=== PATIENT | male | born 1960 | race Caucasian/White ===

== ENCOUNTER → 2018-10-06 | Day surgery (SDC) | payer OTHER, MEDICAID ==
[~2018-10-06] MED LIST: ALBU2.5V8 INH; ALPR2TAB5 PO; ASPI325T8 PO; IV RINGERS,LACTATED 1000ML 1,000 ML IV SCH; LIDOCAINE 1% PF 2 ML VIAL. ONE; PROPOFOL 40 ML IV ONE
[2018-10-06 09:29] VITALS: BP 150/90
--- NOTE | 2018-10-08 14:08 | PATHOLOGY ---
[facility] Accession Number: [id number] . 01 Material submitted: . RECTAL POLYP . 01 Clinical history: . Screening . 02 Diagnosis: Colon, rectum, biopsy: - Hyperplastic polyp, multiple fragments. (SKM:[facility] 10/08/2018) QTP/10/08/2018 . 02 Electronically signed: . Chapo Hamilton MD, Pathologist NPI- [id number] . 01 Gross description: . Received in formalin labeled "Juan F, Dina, rectal polyp," are multiple segments of llanos soft tissue measuring 1.4 x 0.9 x 0.2 cm in aggregate dimensions. The specimen is filtered and entirely submitted in cassette A1. (TSD; 10/06/2018) TOB/TOB . 02 Pathologist provided ICD-10: K62.1 . 02 CPT . 778821 Specimen Comment: A courtesy copy of this report has been sent to Specimen Comment: [phone], . Specimen Comment: Report sent to and Performed at: 01 [facility] [address], [place] [id number] MD Kurt Cason MD Phone: [phone] Performed at: 02 [facility] [address] [place], [place] [id number] MD Diony Jeffers MD Phone: [phone]
== END | disposition home or self-care (01) ==
LOC: ENDOS 07:35
PROVIDERS: ATTEND Internal Medicine Gastroenterology
DX: Z12.11 Encounter for screening for malignant neoplasm of colon (principal); K62.1 Rectal polyp; K57.30 Diverticulosis of large intestine without perforation or abscess without bleeding; K64.0 First degree hemorrhoids; I10 Essential (primary) hypertension; F41.9 Anxiety disorder, unspecified; E78.00 Pure hypercholesterolemia, unspecified; I25.2 Old myocardial infarction; Z83.71 Family history of colonic polyps; Z86.010 Personal history of colon polyps; Z82.49 Family history of ischemic heart disease and other diseases of the circulatory system; Z79.82 Long term (current) use of aspirin; Z79.899 Other long term (current) drug therapy
CPT/HCPCS: 45385; 88305; J2704; 45380

== ENCOUNTER 2021-02-16 09:55 | Emergency (ER) | payer MEDICARE, MEDICAID ==
[~2021-02-16] VITALS: Ht 172.7 cm; Wt 69.7 kg
[~2021-02-16 09:55] MED LIST changes: -IV RINGERS,LACTATED 1000ML 1,000 ML IV SCH; -LIDOCAINE 1% PF 2 ML VIAL. ONE; -PROPOFOL 40 ML IV ONE
--- NOTE | 2021-02-16 11:10 | RAD ---
XR CHEST 1V History: Reason: blurry vision / Spl. Instructions: / History: Comparison: None. Findings: No consolidation or pleural effusion. Normal heart size. No pneumothorax. Impression: 1. No acute cardiopulmonary process. Electronically signed by: Art Cardoso DO (02/16/2021 11:08 AM) [id number]
--- NOTE | 2021-02-16 11:14 | PHYS DOC ---
Past Medical History Past Medical History: High Cholesterol, Hypertension, [place] Past Surgical History: Angioplasty Smoking Status: Current Every Day Smoker General Adult EDM: Chief Complaint: NEURO SYMPTOMS/DEFICITS HPI: HPI: Patient is a 60 year old male with history of ME with 3 stents, hypertension, high cholesterol, current smoker, who presents today complaining of vision changes. Patient states yesterday he was playing on his tablet while watching TV. He had 2 episodes where his right peripheral vision went blurry for a few seconds then he regained his vision. He states his had similar episode a couple years ago but nothing was done for it. He states he has been following up with his PCP as well as clinical rehabilitation liaison at [facility]. Patient denies any headache, denies any chest pain or shortness of breath. Denies any vision changes in the ED. Review of Systems: Review of Systems: Constitutional: Denies fever or chills. [] Eyes: Reports vision changes. Denies change in visual acuity. [] HENT: Denies nasal congestion or sore throat. [] Respiratory: Denies cough or shortness of breath. [] Cardiovascular: Denies chest pain or edema. [] GI: Denies abdominal pain, nausea, vomiting, bloody stools or diarrhea. [] : Denies dysuria. [] Musculoskeletal: Denies back pain or joint pain. [] Integument: Denies rash. [] Neurologic: Denies headache, focal weakness or sensory changes. [] Psychiatric: Denies depression or anxiety. [] Heart Score: C/O Chest Pain: N/A Risk Factors: Risk Factors: DM, Current or recent (<one month) smoker, HTN, HLP, family history of CAD, obesity. Risk Scores: Score 0 - 3: 2.5% MACE over next 6 weeks - Discharge Home Score 4 - 6: 20.3% MACE over next 6 weeks - Admit for Clinical Observation Score 7 - 10: 72.7% MACE over next 6 weeks - Early Invasive Strategies Allergies: Allergies: Allergies Coded Allergies Type Severity Reaction Last Updated Verified No Known Drug Allergies 09/30/18 No Physical Exam: PE: Constitutional: Well developed, well nourished, no acute distress, non-toxic appearance. [] HENT: Normocephalic, atraumatic, bilateral external ears normal, oropharynx moist, no oral exudates, nose normal. [] Eyes: PERRLA, EOMI, conjunctiva normal, no discharge. Inner chambers are intact and normal Neck: Normal range of motion, no tenderness, supple, no stridor. [] Cardiovascular:Heart rate regular rhythm, no murmur [] Lungs & Thorax: Bilateral breath sounds clear to auscultation [] Abdomen: Bowel sounds normal, soft, no tenderness, no masses, no pulsatile masses. [] Skin: Warm, dry, no erythema, no rash. [] Back: No tenderness, no CVA tenderness. [] Extremities: No tenderness, no cyanosis, no clubbing, ROM intact, no edema. [] Neurologic: Alert and oriented X 3, normal motor function, normal sensory function, no focal deficits noted. Cranial nerves II through XII intact Psychologic: Affect normal, judgement normal, mood normal. [] EKG: EK Interpreted by Dr. Vann Sinus rhythm HR 78 no STEMI[] Radiology/Procedures: Radiology/Procedures: []PROCEDURE: PORTABLE CHEST 1V XR CHEST 1V History: Reason: blurry vision / Spl. Instructions: / History: Comparison: None. Findings: No consolidation or pleural effusion. Normal heart size. No pneumothorax. Impression: 1. No acute cardiopulmonary process. Electronically signed by: Art Ivory DO (02/16/2021 11:08 AM) [id number] DICTATED and SIGNED BY: ART IVORY DO DATE: 02/16/21 [id number] PROCEDURE: CT HEAD WO CONTRAST CT HEAD WITHOUT CONTRAST 02/16/2021 11:02 AM Indication: Reason: blurry vision / Spl. Instructions: / History: Comparison: None Procedure: Multidetector CT imaging of the head was performed without the administration of contrast. Findings: There is no evidence of acute intracranial hemorrhage. There is no evidence of acute territorial infarction. Please note that CT is limited for evaluation of acute ischemia. No mass effect or midline shift is identified . The ventricles and basilar cisterns have an appropriate appearance. No abnormal extra-axial fluid collections are seen. No acute osseous changes are identified. Impression: No evidence of acute intracranial abnormality CT DOSING PQRS STATEMENT: One or more of the following individualized dose reduction techniques were utilized for this examination: 1. Automated exposure control 2. Adjustment of the mA and/or kV according to patient size 3. Use of iterative reconstruction technique Electronically signed by: Chet Kyle MD (02/16/2021 11:23 AM) [id number] DICTATED and SIGNED BY: CHET KYLE MD DATE: 02/16/21 [id number] Course & Med Decision Making: Course & Med Decision Making Small summary this is a pertinent Labs and Imaging studies reviewed. (See chart for details) why patient came to the ED small summary This is a 60-year-old male patient presenting to the ED today complaining of an episode of blurry vision that occurred yesterday. See HPI. He has no blurry vision in the ED. Chest x-ray interpreted by radiologist as negative EKG is negative CBC CMP with no acute findings, troponin is normal. CT of the head is negative Blood pressures have been running in the 170s to 150s [id number] Patient states he supposed to be on blood pressure medicine but does not take it. He states initially they put him on blood pressure medicine and it dropped his blood pressure too low. He has a PCP and a clinical rehabilitation liaison, recommended he follows up with them. 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 He states he will quit cold turkey. Kehinde Disclaimer: Kehinde Disclaimer: This electronic medical record was generated, in whole or in part, using a voice recognition dictation system. Departure Departure Impression: Primary Impression: Blurry vision, right eye Additional Impressions: Hypertension Qualified Codes: I10 - Essential (primary) hypertension Marijuana use Smoking addiction Disposition: HOME / SELF CARE / HOMELESS Condition: STABLE Referrals: EREN MORALES MD (PCP) follow up with your doctor as soon as possible PERRY VALENCIA MD follow up in the next one week Patient Instructions: Eye - Blurred Vision, Hypertension, Smoking Cessation Additional Instructions: You were evaluated in the emergency room, we could not find any acute cause for your symptoms. Your work-up in the emergency room is negative. We encourage you to consider smoking cessation. Your blood pressure is running high. Follow-up with your primary care doctor for this. LAYLA ANDRES APRN February 16, 2021 11:14
[2021-02-16 11:16] LABS: BASO % 1 % (0-3); EOS # 0.1 x10^3/uL (0.0-0.7); EOS % 3 % (0-3); HEMATOCRIT 42.6 % (39.0-53.0); HEMOGLOBIN 15.1 g/dL (13.0-17.5); LYMPH # 1.3 x10^3/uL (1.0-4.8); LYMPH % 24 % (24-48); MEAN CORPUSCULAR HEMOGLOBIN 33 pg (25-35); MEAN CORPUSCULAR HGB CONC 36 g/dL (31-37); MEAN CORPUSCULAR VOLUME 92 fL (79-100); MONO # 0.5 x10^3/uL (0.0-1.1); MONO % 8 % (0-9); NEUT # 3.7 x10^3/uL (1.8-7.7); NEUT % 65 % (31-73); PLATELET COUNT 277 x10^3/uL (140-400); RED BLOOD COUNT 4.64 x10^6/uL (4.30-5.70); RED CELL DISTRIBUTION WIDTH 13.6 % (11.5-14.5); WHITE BLOOD COUNT 5.7 x10^3/uL (4.0-11.0)
--- NOTE | 2021-02-16 11:25 | RAD ---
CT HEAD WITHOUT CONTRAST 02/16/2021 11:02 AM Indication: Reason: blurry vision / Spl. Instructions: / History: Comparison: None Procedure: Multidetector CT imaging of the head was performed without the administration of contrast. Findings: There is no evidence of acute intracranial hemorrhage. There is no evidence of acute territ orial infarction. Please note that CT is limited for evaluation of acute ischemia. No mass effect or midline shift is identified . The ventricles and basilar cisterns have an appropriate appearance. No abnormal extra-axial fluid collections are seen. No acute osseous changes are identified. Impression: No evidence of acute intracranial abnormality CT DOSING PQRS STATEMENT: One or more of the following individualized dose reduction techniques were utilized for this examinat ion: 1. Automated exposure control 2. Adjustment of the mA and/or kV according to patient size 3. Use of iterative reconstruction technique Electronically signed by: Chet Sands MD (02/16/2021 11:23 AM) [id number]
[2021-02-16 11:26] LABS: CALCIUM 8.6 mg/dL (8.5-10.1); CREATININE 0.7 mg/dL (0.7-1.3); GFR 115.4; POTASSIUM 3.6 mmol/L (3.5-5.1)
[2021-02-16 11:32] LABS: ALBUMIN 3.7 g/dL (3.4-5.0); ALBUMIN/GLOBULIN RATIO 1.3 (1.0-1.7); TOTAL BILIRUBIN 0.3 mg/dL (0.2-1.0); TOTAL PROTEIN 6.6 g/dL (6.4-8.2)
[2021-02-16 11:36] LABS: AMPHETAMINE/METHAMPHETAMINE NEG (NEG); BARBITURATES NEG (NEG); BENZODIAZEPINES NEG (NEG); CANNABINOIDS POS (NEG); COCAINE NEG (NEG); METHADONE NEG (NEG); OPIATES NEG (NEG); PHENCYCLIDINE NEG (NEG)
[2021-02-16 12:57] VITALS: BP 145/81
== END 2021-02-16 13:35 | disposition home or self-care (01) ==
LOC: ER 09:55
DX: H53.8 Other visual disturbances (principal); I10 Essential (primary) hypertension; F17.200 Nicotine dependence, unspecified, uncomplicated; E78.00 Pure hypercholesterolemia, unspecified; I25.2 Old myocardial infarction; Z98.61 Coronary angioplasty status
CPT/HCPCS: 36415; 70450; 71045; 80053; 80307; 83735; 83880; 84443; 84484; 85025; 93005; 99285

== ENCOUNTER 2021-11-11 14:38 | Emergency (ER) | payer MEDICARE, MEDICAID ==
[~2021-11-11] VITALS: Ht 172.7 cm; Wt 68.1 kg
--- NOTE | 2021-11-11 14:48 | PHYS DOC ---
Past Medical History Past Medical History: High Cholesterol, Hypertension, [place] Additional Past Medical Histor: PSORIASIS Past Surgical History: Angioplasty Additional Past Surgical Histo: CARDIAC STENTS X3 Smoking Status: Current Every Day Smoker Alcohol Use: None General Adult EDM: Chief Complaint: NAUSEA/VOMITING/DIARRHEA HPI: HPI: Patient is a 60 year old male who was brought in by EMS from home. He reports that he started experiencing nausea, vomiting, diarrhea symptoms today. He reports that he has not felt generally well for about a week. He has reported some malaise, myalgias and dry cough. He denies dyspnea, denies chest pain. He reported some mild dizziness with after multiple episodes of vomiting and diarrhea. He denies syncope. He denies diaphoresis. He denies abdominal pain. He denies urinary symptoms. He denies any known sick contacts or travel history or recent hospitalization. Denies recent antibiotic use. EMS attempted to activate a code STEMI in route. They also requested an order for IV amiodarone for occasional PVCs noted on telemetry. They were unable to transmit the EKG for me to review prior to their arrival. Their twelve-lead does not demonstrate evidence of true ST elevation nor any sort of ischemic reciprocal changes. The patient does apparently have a history of previous [place] with stent, this was treated many years ago at [facility]. He reports that he takes a daily aspirin. He had already taken an aspirin earlier today, as he usually does. EMS gave him another aspirin, they also given a dose of sublingual nitroglycerin. They give him a dose of IV Zofran and half a bag of fluids, but he received very little of these fluids prior to arrival. EKG reveals sinus rhythm, rate in the 60s and 70s. He is moderately hypertensive, though he admits he has a history of hypertension but has not been on meds for years, he is willfully noncompliant and does not wish to go see a primary care doctor. He admits he is quite frustrated because he did not want to come to the hospital, but apparently his family called 911. He repeatedly and adamantly denies having any chest pain or dyspnea. He continues also denies any abdominal pain. He reports that his nausea is essentially resolved at this time. Review of Systems: Review of Systems: Constitutional: Denies fever or chills. He does report some mild fatigue. Eyes: Denies change in visual acuity. [] HENT: Denies nasal congestion or sore throat. [] Respiratory: Denies cough or shortness of breath. [] Cardiovascular: Denies chest pain or edema. [] GI: He denies abdominal pain. He reports nausea, vomiting, diarrhea. He denies hematemesis, melena or hematochezia. : Denies dysuria. Musculoskeletal: Denies back pain or joint pain. [] Integument: Denies rash. [] Neurologic: Denies headache, focal weakness or sensory changes. [] Psychiatric: Denies depression or anxiety. [] Heart Score: C/O Chest Pain: No Risk Factors: Risk Factors: DM, Current or recent (<one month) smoker, HTN, HLP, family hi story of CAD, obesity. Risk Scores: Score 0 - 3: 2.5% MACE over next 6 weeks - Discharge Home Score 4 - 6: 20.3% MACE over next 6 weeks - Admit for Clinical Observation Score 7 - 10: 72.7% MACE over next 6 weeks - Early Invasive Strategies Allergies: Allergies: Allergies Coded Allergies Type Severity Reaction Last Updated Verified No Known Drug Allergies 09/30/18 No Physical Exam: PE: Constitutional: Well developed, well nourished, no acute distress, non-toxic appearance. [] HENT: Normocephalic, atraumatic, oropharynx is patent and clear, mucous membranes are moist. Eyes: Conjunctiva normal, no discharge. [] Neck: Normal range of motion, no tenderness, supple, no stridor. Trachea midline. No JVD. Cardiovascular:Heart rate regular rhythm, +2 radial and +2 posterior tibial pulses bilaterally. No cyanosis. No peripheral edema. Warm and well-perfused. Lungs & Thorax: Lungs are clear to auscultation bilaterally without rales, rhonchi or wheezes. No stridor, no tachypnea, no retractions, no evidence of distress. Abdomen: Diminished soft, nondistended, nontender to palpation, no palpable masses organomegaly. No palpable pulsatile mass. No flank abdominal ecchymoses. No CVA tenderness Skin: Warm, dry, no erythema, no rash, no jaundice. Back: No tenderness, no CVA tenderness. [] Extremities: No tenderness, no cyanosis, no clubbing, ROM intact, no edema. No calf tenderness. Neurologic: Alert and oriented X 3, normal motor function, normal sensory function, no focal deficits noted. [] Psychologic: Affect is flat, though he is cooperative and pleasant. EKG: EKG: EKG is interpreted at 1445 Rhythm is sinus Rate is 64 bpm Occasional PVCs No STEMI Radiology/Procedures: Radiology/Procedures: IMAGING REPORT Signed PATIENT: ILYA MAIN ACCOUNT: [id number] : 1960 LOCATION: ER AGE: 60 SEX: M EXAM STATUS: PRE ER ORD. PHYSICIAN: ULYSSES CALVERT DO REASON: cough PROCEDURE: PORTABLE CHEST 1V EXAM: Chest, single view. HISTORY: Cough. COMPARISON: 02/16/2021 FINDINGS: A frontal view of the chest is obtained. There is no infiltrate, pleural effusion or pneumothorax. The heart is normal in size. There are circumscribed nodules overlying the bilateral lower thorax due to nipple shadows. IMPRESSION: No acute pulmonary finding. Electronically signed by: Vani Chaves MD (11/11/2021 3:11 PM) [facility] DICTATED and SIGNED BY: VANI CHAVES MD DATE: 11/11/21 [id number] 0 Course & Med Decision Making: Course & Med Decision Making Pertinent Labs and Imaging studies reviewed. (See chart for details) The patient is given IV fluids, he declines any further antiemetics. No further vomiting or diarrhea has occurred here. PVCs are noted occasionally, these will not be suppressed, no indication for such. No true ST elevation noted on EKG or telemetry here. No acute ischemia. Troponin initially is 41, second troponin trending down to 37. He continues to deny chest pain or dyspnea. He again continues to be moderately hypertensive, though asymptomatically so. I finney spect he has longstanding and untreated hypertension. I have explained all of the findings, differential diagnosis with the patient. I have strongly recommend that he seek follow-up with his lehr attendant and primary care physician. He will need to be restarted on antihypertensive medications. He verbalizes understanding of this. He is tolerating oral fluids without difficulty. Dragon Disclaimer: Kehinde Disclaimer: This electronic medical record was generated, in whole or in part, using a voice recognition dictation system. Departure Departure Impression: Primary Impression: Nausea vomiting and diarrhea Additional Impressions: Asymptomatic PVCs Hypertension Disposition: 01 HOME / SELF CARE / HOMELESS Condition: STABLE Referrals: EREN MORALES MD (PCP) Patient Instructions: Hypertension, Premature Ventricular Contraction, Viral Gastroenteritis Additional Instructions: Make sure you stay hydrated, drink plenty of fluids. Eat a bland diet. Use the nausea medicine as needed. Return for chest pain, shortness of breath, uncontrolled vomiting, vomiting blood, dehydration, temperature 100.4 or higher, severe abdominal pain or any other concerns. Please make sure you take your blood pressure medicine as directed. Eat a low-sodium diet. Please contact your primary care doctor to follow-up. Scripts Hydrochlorothiazide (HYDROCHLOROTHIAZIDE TABLET ) 25 Mg Tablet 25 MG PO DAILY for DIURETIC, #30 TAB 0 Refills Prov: ULYSSES CALVERT DO 11/11/21 Ondansetron Hcl (ONDANSETRON HCL) 4 Mg Tablet 1 TAB PO PRN Q6HRS for vomiting, #20 TAB 1 Refill Prov: ULYSSES CALVERT DO 11/11/21 ULYSSES CALVERT DO Nov 11, 2021 14:48
[2021-11-11] MEDS ORDERED: IV NORMAL SALINE 1000ML BAG 1,000 ML IV ONE (15:00)
[2021-11-11 15:09] LABS: BASO # 0.1 x10^3/uL (0.0-0.2); BASO % 1 % (0-3); EOS # 0.1 x10^3/uL (0.0-0.7); EOS % 2 % (0-3); HEMATOCRIT 44.6 % (39.0-53.0); HEMOGLOBIN 15.3 g/dL (13.0-17.5); LYMPH # 1.2 x10^3/uL (1.0-4.8); LYMPH % 18 % (24-48); MEAN CORPUSCULAR HEMOGLOBIN 31 pg (25-35); MEAN CORPUSCULAR HGB CONC 34 g/dL (31-37); MEAN CORPUSCULAR VOLUME 91 fL (79-100); MONO # 0.5 x10^3/uL (0.0-1.1); MONO % 7 % (0-9); NEUT # 4.9 x10^3/uL (1.8-7.7); NEUT % 72 % (31-73); PLATELET COUNT 308 x10^3/uL (140-400); RED BLOOD COUNT 4.88 x10^6/uL (4.30-5.70); RED CELL DISTRIBUTION WIDTH 13.2 % (11.5-14.5); WHITE BLOOD COUNT 6.8 x10^3/uL (4.0-11.0)
--- NOTE | 2021-11-11 15:14 | RAD ---
EXAM: Chest, single view. HISTORY: Cough. COMPARISON: 02/16/2021 FINDINGS: A frontal view of the chest is obtained. There is no infiltrate, pleural effusion or pneumo thorax. The heart is normal in size. There are circumscribed nodules overlying the bilateral lower th orax due to nipple shadows. IMPRESSION: No acute pulmonary finding. Electronically signed by: Vani Cervantes MD (11/11/2021 3:11 PM) [facility]
[2021-11-11 15:22] LABS: CALCIUM 8.8 mg/dL (8.5-10.1); CREATININE 0.7 mg/dL (0.7-1.3); GFR 115.4; POTASSIUM 3.9 mmol/L (3.5-5.1)
[2021-11-11 15:28] LABS: ALBUMIN 3.2 g/dL (3.4-5.0); ALBUMIN/GLOBULIN RATIO 0.7 (1.0-1.7); MAGNESIUM 1.9 mg/dL (1.8-2.4); PHOSPHORUS 1.8 mg/dL (2.6-4.7); TOTAL BILIRUBIN 0.6 mg/dL (0.2-1.0); TOTAL PROTEIN 7.8 g/dL (6.4-8.2)
[2021-11-11] MEDS ORDERED: ONDA-84 PO (18:15)
[2021-11-11] MEDS ORDERED: HYDR-2145 PO (18:16)
[2021-11-11 18:24] VITALS: BP 154/70
--- NOTE | 2021-11-11 22:14 | EKG ---
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
--- NOTE | 2021-11-14 11:14 | NUR ---
IP: Attempted to contact pt concerning covid results. No answer, left a voicemail to return the call.
== END 2021-11-11 18:34 | disposition home or self-care (01) ==
LOC: ER 14:38
DX: R11.2 Nausea with vomiting, unspecified (principal); R19.7 Diarrhea, unspecified; Z20.822 Contact with and (suspected) exposure to COVID-19; I10 Essential (primary) hypertension; I49.3 Ventricular premature depolarization; E78.00 Pure hypercholesterolemia, unspecified; I25.2 Old myocardial infarction; F17.200 Nicotine dependence, unspecified, uncomplicated; Z95.5 Presence of coronary angioplasty implant and graft
CPT/HCPCS: 36415; 71045; 80053; 83690; 83735; 83880; 84100; 84484; 85025; 87426; 93005; 96360; 96361; 99285; J7030; U0003; U0005